=== PATIENT | female | born 1995 | race Caucasian/White ===

== ENCOUNTER 2021-10-21 13:57 | Emergency (ER) | payer OTHER, SELFPAY ==
--- NOTE | ~2021-10-21 | XR_ITS ---
EXAMINATION: XR ankle RT 2V EXAM DATE: 10/21/2021 15:05 INDICATION: Rolled ankle today hiking, lateral pain and swelling TECHNIQUE: Frontal and lateral projections of the right ankle. There is no prior study for comparis on. FINDINGS: Acute closed posttraumatic fracture through the right radial distal metaphysis extending i nto the mortise. Probably all 4 mm of displacement. Mortise relationship appears intact on the fronta l projection, but there is substantial swelling over the medial side of the ankle as well. IMPRESSION: Acute right distal fibular metaphyseal fracture into mortise; orthopedic consult. Reviewed, dictated and finalized at location A. [facility] SULFATE IMPRESSION: Acute right distal fibular metaphyseal fracture into mortise; orth opedic consult.
[2021-10-21 14:33] VITALS: BP 147/91; PULSE 99; RESP 16; TEMP 36.6; O2SAT 98
[2021-10-21] MEDS: KETOROLAC (*BKC) 60 MG/2 ML VIAL IM (14:45)
--- NOTE | 2021-10-21 15:27 | ED.LOWEXIN ---
HPI - Extremity Injury (Lower) General Chief Complaint: Extremity Injury, Lower Stated Complaint: R ankle pain Source: patient and family Mode of arrival: wheelchair Limitations: no limitations History of Present Illness HPI Narrative: this is a 26-year-old female with no significant past medical history presents to the ER after she misstepped and twisted right ankle feeling immediate bruit and other swelling that occurred yesterday and presents today to the emergency department some pain that she rates about an 8/10 with swelling in bilateral malleolus with some pain extending into her anterior leg with bruising and swelling with a reducedrange of motion secondary to swelling and pain and tenderness. complaint: ankle injury Onset (ago): day(s) Injury: Right: ankle ( bruising swelling and point tenderness) Severity: moderate Severity scale (1-10): 8 Relieving factors: immobilization Exacerbating factors: weight bearing, movement and palpation Context: walking Associated symptoms: snap/pop sensation, swelling and unable to bear weight Related Data Allergies Allergy/AdvReac Type Severity Reaction Status Date / Time No Known Allergies Allergy Verified 10/31/19 00:50 Review of Systems Review of Systems: All systems reviewed & are unremarkable except as noted in HPI and below [facility] Past Medical History Medical History (Updated 10/21/21 @ 15:34 by Víctor Ram MD) Patient denies medical problems Exam Const: General: no acute distress and alert Orientation/consciousness: patient oriented x3 Limitations: altered mental status HENMT: Head: normal to inspection Eyes: Conjunctivae: conjunctivae normal Pupils: Equal, round and reactive pupils present Direct Ophthalmoscopy: no photophobia Neck: Neck: normal visual inspection Chest: Chest palpation & inspection: normal inspection of the chest Resp: Effort & Inspection: normal respiratory effort Auscultation: clear to auscultation bilaterally Cardio: Rate: regular rate Rhythm: regular rhythm GI: GI Palp: Yes Soft to palpation Percussion: Yes normal to percussion : General: Yes no CVA tenderness Urinary Catheter: Urinary Catheter: patent and draining Back/Spine/Pelvis: Back: no CVA tenderness Skin: General skin exam: normal color Rashes: no rashes Neuro: General: patient oriented x3, moves all extremities, no meningeal signs and no focal motor deficits Extrem: General: edema Other: falling bruising and tenderness on the ankle with palpation Psych: Mental Status: mental status grossly normal Affect: normal affect Attitude: cooperative Course Course Emergency Course: patient currently with her mother pain in her right ankle and leg patient did receive IM Toradol and x-rays reviewed with patient and family and refer to Orthopedics. Dr. Morgan will follow in the orthopedic office OCL was placed on patient's right ankle. Vital Signs Vital signs: Vital Signs Temperature 36.6 C 10/21/21 14:33 Pulse Rate 99 10/21/21 14:33 Respiratory Rate 16 10/21/21 14:33 Blood Pressure 147/91 H 10/21/21 14:33 Pulse Oximetry 98 10/21/21 14:33 Temperature 36.6 C 10/21/21 14:33 Pulse Rate 99 10/21/21 14:33 Respiratory Rate 16 10/21/21 14:33 Blood Pressure 147/91 H 10/21/21 14:33 Pulse Oximetry 98 10/21/21 14:33 Critical Care Time Critical Care Time Critical Care Time: No Discharge Plan Discharge Clinical Impression: Fracture of distal end of fibula Qualifiers: Encounter type: initial encounter Fracture type: closed Fracture morphology: unspecified fracture morphology Laterality: right Qualified Code(s): S82.831A - Other fracture of upper and lower end of right fibula, initial encounter for closed fracture Patient Disposition: Home, Self-Care Condition: Stable Instructions: Antibiotic Form, Ankle Fracture (ED) Additional Instructions: advised follow-up with orthopedics as scheduled. Prescriptions: New
--- NOTE | 2021-10-21 15:44 | PC.NURSE ---
Charted faxed to Dr. Livingston office.
--- NOTE | 2021-10-21 16:20 | PC.NURSE ---
Spoke to Britni at Dr. Morgan's office who states she will call pt for f/u appt.
== END 2021-10-21 16:50 | disposition home or self-care (01) ==
PROVIDERS: Emergency Provider Emergency Medicine
DX: S82.831A Other fracture of upper and lower end of right fibula, initial encounter for closed fracture (principal)
CPT/HCPCS: 29515; 73600; 96372; 99283; 99284; J1885